=== PATIENT | female | born 1995 | race Caucasian/White ===

== ENCOUNTER 2022-05-21 21:41 | Emergency (ER) | payer MEDICAID, OTHER ==
[~2022-05-21] VITALS: Ht 167.6 cm; Wt 70.0 kg
[2022-05-21 21:48] VITALS: BP 112/67
== END 2022-05-22 01:40 | disposition home or self-care (01) ==
LOC: ER 21:41
DX: R55 Syncope and collapse (principal)
CPT/HCPCS: 99283